=== PATIENT | male | born 1995 | race Two or more races ===

== ENCOUNTER 2025-09-22 17:57 | Emergency (ER) | payer MEDICAID ==
[~2025-09-22] VITALS: Ht 167.6 cm; Wt 75.0 kg
[2025-09-22 18:18] VITALS: O2SAT 98
[2025-09-22 20:36] VITALS: BP 127/90; PULSE 108; RESP 14; TEMP 36.8; O2SAT 99
== END 2025-09-22 20:37 | disposition home or self-care (01) ==
LOC: EDBD 17:57 → ER 17:57
DX: T50.901A Poisoning by unspecified drugs, medicaments and biological substances, accidental (unintentional), initial encounter (principal); F15.10 Other stimulant abuse, uncomplicated; R29.810 Facial weakness; Z79.899 Other long term (current) drug therapy; Y92.89 Other specified places as the place of occurrence of the external cause
CPT/HCPCS: 82962; 99283